=== PATIENT | female | born 1980 | race Caucasian/White ===

== ENCOUNTER 2019-06-08 11:00 | Emergency (ER) | payer BC ==
[~2019-06-08] VITALS: Ht 165.1 cm; Wt 93.2 kg
[~2019-06-08 11:00] MED LIST: DCS100C PO; HYDR-3730 PO; IBP800T PO; IBUP-1780 PO; ONDA4TAB11 PO; OXYC1TAB12 PO; TRAM50TA2 PO
--- NOTE | 2019-06-08 12:32 | NUR ---
TO ROOM NO CHANGE FROM TRIAGE
[2019-06-08] MEDS ORDERED: KETOROLAC 30 MG/ML VIAL IVP ONE (12:45)
[2019-06-08 13:02] LABS: BASOPHILS % (AUTO) 0 % (0-10); EOSINOPHILS # (AUTO) 0.1 10^3/uL (0.0-0.3); EOSINOPHILS % (AUTO) 1 % (0-10); HEMATOCRIT 38 % (35-52); HEMOGLOBIN 12.2 G/DL (11.5-16.0); LYMPHOCYTES # (AUTO) 1.1 X 10^3 (1.0-4.0); LYMPHOCYTES % (AUTO) 14 % (12-44); MEAN CORPUSCULAR HEMOGLOBIN 27 PG (25-34); MEAN CORPUSCULAR HGB CONC 33 G/DL (32-36); MEAN CORPUSCULAR VOLUME 83 FL (80-99); MEAN PLATELET VOLUME 9.7 FL (7.4-10.4); MONOCYTES # (AUTO) 0.4 X 10^3 (0.0-1.0); MONOCYTES % (AUTO) 5 % (0-12); NEUTROPHILS % (AUTO) 79 % (42-75); PLATELET COUNT 291 10^3/uL (130-400); RED CELL DISTRIBUTION WIDTH 13.9 % (10.0-14.5); WHITE BLOOD COUNT 7.6 10^3/uL (4.3-11.0)
--- NOTE | 2019-06-08 13:03 | ED Abdominal Pain ---
General Chief Complaint: Abdominal/GI Problems Stated Complaint: ABD PAIN Nursing Triage Note: PT AMB TO TRIAGE WITH COMPLAINT OF ABD PAIN THAT STARTED LAST NIGHT. STATES PAIN IS IN RLQ AND RADIATES TO BACK. Sepsis Screen: No Definite Risk Source of Information: Patient Exam Limitations: No Limitations History of Present Illness Date Seen by Provider: Jun 08, 2019 Time Seen by Provider: 13:02 Initial Comments To ER with reports of right lower quadrant abdominal pain that radiates to the back and down the right leg. She's had diarrhea for a few days, the pain has progressively worsened since last night. She was here with similar presentation in 2016 and does not have no evidence of appendicitis. Primary care is Deana Carrion APRN.. She denies fevers or vomiting. Timing/Duration: 1-2 Days Severity/Quality: Moderate Radiation: No Radiation Activities at Onset: None Associated Symptoms: No Fever/Chills, No Nausea/Vomiting Allergies and Home Medications Allergies Coded Allergies: NKANo Known Allergies (Verified Allergy, Unknown, 02/26/06) Patient Home Medication List Home Medication List Reviewed: Yes Review of Systems Review of Systems Constitutional: see HPI EENTM: No Symptoms Reported Respiratory: No Symptoms Reported Cardiovascular: No Symptoms Reported Gastrointestinal: See HPI, Abdominal Pain Genitourinary: No Symptoms Reported Musculoskeletal: no symptoms reported Skin: no symptoms reported Psychiatric/Neurological: No Symptoms Reported Endocrine: No Symptoms Reported Past Ctvynhj-Shlkht-Probmi Hx Patient Social History Recent Foreign Travel: No Contact w/Someone Who Travel: No Recent Infectious Disease Expo: No Recent Hopitalizations: No Physical Abuse: No Sexual Abuse: No Mistreated: No Fear: No Immunizations Up To Date Tetanus Booster (TDap): Unknown PED Vaccines UTD: Yes Past Medical History Surgeries: Yes (C/S X4) Section, Gallbladder, Tubal Ligation Respiratory: No Cardiac: Yes (MURMUR A CHILD, GESTATIONAL HYPERTENSION) Hypertension Neurological: No Reproductive Disorders: No Female Reproductive Disorders: Ovarian Cyst Sexually Transmitted Disease: No HIV/AIDS: No Gastrointestinal: Yes Gall Bladder Disease Musculoskeletal: No Endocrine: No Loss of Vision: Denies Hearing Impairment: Denies Cancer: No Psychosocial: No Integumentary: No Blood Disorders: No Adverse Reaction/Blood Tranf: No Family Medical History Alzheimer's disease MATERNAL GRANDMOTHER Arthritis 19 MOTHER Diabetes mellitus 19 MOTHER Hypercholesterolemia 19 FATHER 19 MOTHER Hypertension 19 FATHER Myocardial infarction 19 FATHER Severe allergy 19 MOTHER Thyroid disease 19 MOTHER No Family History of: AIDS Abdominal aortic aneurysm Donato's disease Alcoholism Aphasia Asthma Cancer of mouth Cardiovascular disease Cataracts Colon cancer Completed stroke Congenital disease Congenital heart disease Coronary thrombosis Cystic fibrosis Deafness or hearing loss Dementia Drug abuse Dysphasia Fibrocystic disease of breast Gastroenteritis Glaucoma Headache disorder Infertility Kidney disease Neoplasm Not obtainable due to adoption Osteoporosis Parkinson's disease Prostate cancer Psychosocial problem Respiratory disorder Seizure disorder Tuberculosis Visual disorder No Pertinent Family Hx Physical Exam Vital Signs Vital Signs - First Documented 06/08/19 11:04 Temp 36.7 Pulse 97 Resp 18 B/P (MAP) 132/94 (107) Pulse Ox 98 O2 Delivery Room Air Capillary Refill : Less Than 3 Seconds Height/Weight/BMI Height: 5'6" Weight: 220lbs. oz. 99.642234zq; 34.00 BMI Method:Stated General Appearance: WD/WN, no apparent distress HEENT: PERRL/EOMI, normal ENT inspection Respiratory: no respiratory distress, no accessory muscle use Gastrointestinal: normal bowel sounds, soft, rebound, tenderness, other (obturator sign positive) Extremities: normal range of motion, non-tender Neurologic/Psychiatric: alert, normal mood/affect, oriented x 3 Skin: normal color, warm/dry Progress/Results/Core Measures Results/Orders Lab Results Laboratory Tests Test 06/08/19 12:50 06/08/19 14:49 Range/Units White Blood Count 7.6 4.3-11.0 10^3/uL Red Blood Count 4.52 4.35-5.85 10^6/uL Hemoglobin 12.2 11.5-16.0 G/DL Hematocrit 38 35-52 % Mean Corpuscular Volume 83 80-99 FL Mean Corpuscular Hemoglobin 27 25-34 PG Mean Corpuscular Hemoglobin Concent 33 32-36 G/DL Red Cell Distribution Width 13.9 10.0-14.5 % Platelet Count 291 130-400 10^3/uL Mean Platelet Volume 9.7 7.4-10.4 FL Neutrophils (%) (Auto) 79 H 42-75 % Lymphocytes (%) (Auto) 14 12-44 % Monocytes (%) (Auto) 5 0-12 % Eosinophils (%) (Auto) 1 0-10 % Basophils (%) (Auto) 0 0-10 % Neutrophils # (Auto) 6.0 1.8-7.8 X 10^3 Lymphocytes # (Auto) 1.1 1.0-4.0 X 10^3 Monocytes # (Auto) 0.4 0.0-1.0 X 10^3 Eosinophils # (Auto) 0.1 0.0-0.3 10^3/uL Basophils # (Auto) 0.0 0.0-0.1 10^3/uL Sodium Level 139 135-145 MMOL/L Potassium Level 3.9 3.6-5.0 MMOL/L Chloride Level 105 98-107 MMOL/L Carbon Dioxide Level 26 21-32 MMOL/L Anion Gap 8 5-14 MMOL/L Blood Urea Nitrogen 8 7-18 MG/DL Creatinine 0.92 0.60-1.30 MG/DL Estimat Glomerular Filtration Rate > 60 BUN/Creatinine Ratio 9 Glucose Level 89 70-105 MG/DL Calcium Level 9.2 8.5-10.1 MG/DL Corrected Calcium 9.1 8.5-10.1 MG/DL Total Bilirubin 0.5 0.1-1.0 MG/DL Aspartate Amino Transf (AST/SGOT) 24 5-34 U/L Alanine Aminotransferase (ALT/SGPT) 27 0-55 U/L Alkaline Phosphatase 74 40-136 U/L Total Protein 7.8 6.4-8.2 GM/DL Albumin 4.1 3.2-4.5 GM/DL Serum Test, Qualitative NEGATIVE NEGATIVE Urine Color YELLOW Urine Clarity CLEAR Urine pH 6.5 5-9 Urine Specific [place] 1.010 L 1.016-1.022 Urine Protein 1+ H NEGATIVE Urine Glucose (UA) NEGATIVE NEGATIVE Urine Ketones NEGATIVE NEGATIVE Urine Nitrite NEGATIVE NEGATIVE Urine Bilirubin NEGATIVE NEGATIVE Urine Urobilinogen NORMAL NORMAL MG/DL Urine Leukocyte Esterase 2+ H NEGATIVE Urine RBC (Auto) NEGATIVE NEGATIVE Urine RBC NONE /HPF Urine WBC 25-50 H /HPF Urine Squamous Epithelial Cells 5-10 /HPF Urine Crystals NONE /LPF Urine Bacteria TRACE /HPF Urine Casts NONE /LPF Urine Mucus NEGATIVE /LPF Urine Culture Indicated YES My Orders Orders - CAREY GUDINO [employer] ADVIS[employer] Cbc With Automated Diff (06/08/19 12:42) Comprehensive Metabolic Panel (06/08/19 12:42) Hcg,Qualitative Serum (06/08/19 12:42) Ct Abd/Pelv W (Appendicitis) (06/08/19 12:42) Ed Iv/Invasive Line Start (06/08/19 12:42) Ua Culture If Indicated (06/08/19 12:42) Ketorolac Injection (Toradol Injection) (06/08/19 12:45) Iohexol Injection (Omnipaque 350 Mg/Ml 1 (06/08/19 13:45) Received Contrast (Hold Metformin- Contr (06/08/19 13:45) Sodium Chloride Flush (Catheter Flush Sy (06/08/19 13:45) Ns (Ivpb) (Sodium Chloride 0.9% Ivpb Bag (06/08/19 13:45) Urine Culture (06/08/19 14:49) Medications Given in ED Current Medications Medications Dose Ordered Sig/Angel Route Start Time Stop Time Status Last Admin Dose Admin Iohexol 100 ml ONCE ONCE IV 06/08/19 13:45 06/08/19 13:46 DC 06/08/19 14:16 100 ML Ketorolac Tromethamine 15 mg ONCE ONCE IVP 06/08/19 12:45 06/08/19 12:46 DC 06/08/19 12:59 15 MG Sodium Chloride 10 ml NEEDED PRN IV 06/08/19 13:45 06/08/19 14:16 10 ML Sodium Chloride 100 ml ONCE ONCE IV 06/08/19 13:45 06/08/19 13:46 DC 06/08/19 14:16 80 ML Vital Signs/I&O 06/08/19 11:04 Temp 36.7 Pulse 97 Resp 18 B/P (MAP) 132/94 (107) Pulse Ox 98 O2 Delivery Room Air Blood Pressure Mean: 107 Diagnostic Imaging Diagonstic Imaging: CT Comments NAME: MURIEL TRISTAN [facility] REC#: [id number] PT STATUS: REG ER : 1980 PHYSICIAN: CAREY GUDINO APRN ADMIT DATE: 06/08/19/ER Draft Date of Exam:06/08/19 CT ABD/PELV W (APPENDICITIS) PROCEDURE: CT abdomen and pelvis with contrast, rule out appendicitis. TECHNIQUE: Multiple contiguous axial images were obtained through the abdomen and pelvis after the administration of intravenous contrast. INDICATION: Right lower quadrant pain and diarrhea. COMPARISON: Correlation is made with prior CT from 08/21/2015. FINDINGS: The lung bases are clear. There are multiple low-density lesions that have developed throughout the liver. This was not present on prior exam. Largest is in the left lobe measuring 16 mm. These cannot be characterized as simple cysts. There are multiple low-density lesions within the spleen as well, largest is inferiorly located measuring 16 mm. Gallbladder is surgically absent. No biliary ductal dilatation is seen. The pancreas is unremarkable. No adrenal mass is detected. No renal masses or hydronephrosis is seen. Aorta is non-aneurysmal. No central retroperitoneal or mesenteric lymphadenopathy is seen. The small and large bowel loops are normal in caliber. There is no obstruction. Appendix is visualized in the right lower quadrant and appears unremarkable. The uterus and bladder are unremarkable. There is no free fluid or fluid collection. No pelvic lymphadenopathy is seen. Bony structures are nonacute. IMPRESSION: 1. No CT evidence of acute appendicitis. 2. Interval development of multiple rounded low-density lesions throughout the liver and spleen. This is concerning for metastatic disease. Primary is indeterminate. CT of the chest would be recommended for further evaluation. No other significant abnormality in the abdomen or pelvis is seen. Dictated on workstation # [id number] Dict: 06/08/19 1423 Trans: 06/08/19 1436 [id number] Interpreted by: CASSY DIA MD Electronically signed by: Departure Communication (Admissions) I spoke with the patient's primary care provider Deana Carrion, she'll see the patient tomorrow morning at 8:30. I spoke with radiologist Dr. Dia, recommends the next step would be a CT scan of the chest and then additional PET CT scan. Impression Primary Impression: Right lower quadrant pain Additional Impressions: hepatic incidentaloma hepatosplenic lesions Urinary tract infection Qualified Codes: N30.00 - Acute cystitis without hematuria Disposition: HOME, SELF-CARE Condition: Stable Departure-Patient Inst. Decision time for Depature: 14:37 Referrals: CAMERON CARRION DNP (PCP) Primary Care Physician Patient Instructions: NO INSTRUCTIONS GIVEN Add. Discharge Instructions: 1. Return to ER for any concerns 2. Follow up with Alize Carrion tomorrow at 0830. Scripts Cefuroxime Axetil (Cefuroxime) 250 Mg Tablet 250 MG PO BID, #10 TAB Prov: CAREY GUDINO APRN 06/08/19 Copy Copies To 1: REHAN CARRION PETER J APRN Jun 08, 2019 13:03
[2019-06-08 13:23] LABS: ALANINE AMINOTRANSFERASE 27 U/L (0-55); ALBUMIN 4.1 GM/DL (3.2-4.5); ALKALINE PHOSPHATASE 74 U/L (40-136); BILIRUBIN,TOTAL 0.5 MG/DL (0.1-1.0); BUN/CREATININE RATIO 9; CALCIUM 9.2 MG/DL (8.5-10.1); CARBON DIOXIDE 26 MMOL/L (21-32); CHLORIDE 105 MMOL/L (98-107); CREATININE SERUM 0.92 MG/DL (0.60-1.30); GFR ESTIMATED > 60; GLUCOSE 89 MG/DL (70-105); POTASSIUM 3.9 MMOL/L (3.6-5.0); SODIUM 139 MMOL/L (135-145); TOTAL PROTEIN 7.8 GM/DL (6.4-8.2)
[2019-06-08] MEDS ORDERED: CATHETER FLUSH 10 ML SYR IV PRN (13:45)
[2019-06-08] MEDS ORDERED: HOLD METFORMIN - RECEIVED CONTRAST 20 ML VIAL IV SCH (13:45)
[2019-06-08] MEDS ORDERED: NS 100 ML (IVPB) BAG IV ONE (13:45)
[2019-06-08] MEDS ORDERED: IOHEXOL 350 MG/ML 100 ML (OMNIPAQUE 350) VIAL IV ONE (13:45)
--- NOTE | 2019-06-08 14:37 | Diagnostic Imaging Report ---
PROCEDURE: CT abdomen and pelvis with contrast, rule out appendicitis. TECHNIQUE: Multiple contiguous axial images were obtained through the abdomen and pelvis after the administration of intravenous contrast. INDICATION: Right lower quadrant pain and diarrhea. COMPARISON: Correlation is made with prior CT from 08/21/2015. FINDINGS: The lung bases are clear. There are multiple low-density lesions that have developed throughout the liver. This was not present on prior exam. Largest is in the left lobe measuring 16 mm. These cannot be characterized as simple cysts. There are multiple low-density lesions within the spleen as well, largest is inferiorly located measuring 16 mm. Gallbladder is surgically absent. No biliary ductal dilatation is seen. The pancreas is unremarkable. No adrenal mass is detected. No renal masses or hydronephrosis is seen. Aorta is non-aneurysmal. No central retroperitoneal or mesenteric lymphadenopathy is seen. The small and large bowel loops are normal in caliber. There is no obstruction. Appendix is visualized in the right lower quadrant and appears unremarkable. The uterus and bladder are unremarkable. There is no free fluid or fluid collection. No pelvic lymphadenopathy is seen. Bony structures are nonacute. IMPRESSION: 1. No CT evidence of acute appendicitis. 2. Interval development of multiple rounded low-density lesions throughout the liver and spleen. This is concerning for metastatic disease. Primary is indeterminate. CT of the chest would be recommended for further evaluation. No other significant abnormality in the abdomen or pelvis is seen. Dictated by: Dictated on workstation # [id number]
[2019-06-08 14:56] LABS: BILIRUBIN,URINE NEGATIVE (NEGATIVE); CLARITY,URINE CLEAR; COLOR,URINE YELLOW; GLUCOSE, URINE (UA) NEGATIVE (NEGATIVE); KETONES,URINE NEGATIVE (NEGATIVE); LEUKOCYTE ESTERASE ,URINE 2+ (NEGATIVE); NITRITE,URINE NEGATIVE (NEGATIVE); PH,URINE 6.5 (5-9); PROTEIN,URINE 1+ (NEGATIVE)
[2019-06-08 15:09] LABS: BACTERIA,URINE TRACE /HPF; WBC,URINE 25-50 /HPF
[2019-06-08] MEDS ORDERED: CEFU250T80 PO (15:15)
[2019-06-08 15:23] VITALS: BP 131/90
[2019-06-09] MEDS ORDERED: ACHD5005 PO (12:46)
== END 2019-06-08 15:23 | disposition home or self-care (01) ==
LOC: EDUNIT# 11:00 → ER 11:01
DX: D13.4 Benign neoplasm of liver (principal); K76.89 Other specified diseases of liver; N39.0 Urinary tract infection, site not specified; I10 Essential (primary) hypertension; Z98.51 Tubal ligation status; Z82.49 Family history of ischemic heart disease and other diseases of the circulatory system
CPT/HCPCS: 36415; 74177; 80053; 81000; 84703; 85025; 87088; 96374

== ENCOUNTER → 2019-06-21 | Outpatient (CLI) | payer BC ==
[~2019-06-21] MED LIST changes: +ACHD5005 PO; +CATHETER FLUSH 10 ML SYR IV PRN; +CEFU250T80 PO; +HOLD METFORMIN - RECEIVED CONTRAST 20 ML VIAL IV SCH; +IOHEXOL 350 MG/ML 100 ML (OMNIPAQUE 350) VIAL IV ONE; +NS 100 ML (IVPB) BAG IV ONE
--- NOTE | 2019-06-21 16:32 | Diagnostic Imaging Report ---
PROCEDURE: CT chest with contrast only. TECHNIQUE: Multiple contiguous axial images were obtained through the chest after administration of intravenous contrast. Auto Exposure Controls were utilized during the CT exam to meet ALARA standards for radiation dose reduction. DATE: June 21, 2019. COMPARISON: CT abdomen and pelvis of June 08, 2019. INDICATION: 38-year-old female, concern for metastatic disease to the liver and spleen based on prior CT imaging. No additional history provided. FINDINGS: There is very mild tree-in-bud nodularity in the left upper lobe on axial image 41 and adjacent sequential images. The tree-in-bud nodular pattern is most typical for a process spreading via endobronchial means which is most typically an infectious bronchiolitis or aspiration. This is a very uncommon nodular pattern for metastatic disease. There is no otherwise noted pulmonary nodule. There is no lung mass. There is no additional focal airspace consolidation. The central airways are patent. There is no pneumothorax. There is no pleural effusion. There is no identified central pulmonary embolus. There is limited evaluation for segmental and subsegmental pulmonary emboli given timing of the contrast bolus. The heart is not enlarged. There is no pericardial effusion. There is no identified abnormally enlarged mediastinal, hilar, or axillary lymph node. CT is not sensitive for detection of breast cancer. There are multiple subtle low-attenuation lesions in the right and left lobes of the liver as well as multiple low-attenuation lesions in the spleen. The spleen is not enlarged. There is contrast present in the urinary collecting systems likely relating to timing of the contrast bolus. There is no identified concerning focal bone lesion. IMPRESSION: 1. Mild tree in bud nodularity in the left upper lobe of uncertain exact acuity. This most likely relates to a process spreading via endobronchial means which is most typically an infectious bronchiolitis or aspiration. This is a highly uncommon nodular pattern for metastatic disease. 2. No evidence of metastatic disease to the lungs or evidence for primary lung malignancy. 3. CT chest is not sensitive for evaluation of breast cancer. 4. Redemonstrated multiple subtle low-attenuation lesions in the right and left lobes of the liver as well as multiple low-attenuation lesions in the spleen without splenomegaly. The differential diagnostic considerations would include multifocal metastatic disease to liver or potentially infectious etiology depending on clinical scenario. Workup for a definitive diagnosis is needed. Dictated by: Dictated on workstation # [id number]
== END ==
LOC: RAD 12:21
PROVIDERS: ATTEND Surgery
DX: D37.6 Neoplasm of uncertain behavior of liver, gallbladder and bile ducts (principal); D73.89 Other diseases of spleen; K76.9 Liver disease, unspecified
CPT/HCPCS: 71260

== ENCOUNTER 2019-06-28 07:26 | Day surgery (SDC) | payer BC ==
[~2019-06-28] VITALS: Ht 165.1 cm; Wt 99.5 kg
[2019-06-28] VITALS (16 sets, daily range): BP systolic 92–127; BP diastolic 51–82
[~2019-06-28 07:26] MED LIST changes: -CATHETER FLUSH 10 ML SYR IV PRN; -HOLD METFORMIN - RECEIVED CONTRAST 20 ML VIAL IV SCH; -IOHEXOL 350 MG/ML 100 ML (OMNIPAQUE 350) VIAL IV ONE; -NS 100 ML (IVPB) BAG IV ONE
[2019-06-28] MEDS ORDERED: LIDOCAINE PF 1% 2 ML AMP IJ ONE (07:27)
[2019-06-28] MEDS ORDERED: LIDOCAINE JELLY 2% 6 ML SYRINGE MM ONE (07:27)
[2019-06-28] MEDS ORDERED: LIDOCAINE PF 2% 5 ML (XYLOCAINE) VIAL INJ ONE (07:27)
[2019-06-28] MEDS ORDERED: NS IV 500 ML 500 ML ONE (07:40)
[2019-06-28] MEDS ORDERED: NS IV 500 ML 500 ML IV PRN (07:55)
[2019-06-28] MEDS ORDERED: fentaNYL INJECTION 100 MCG/2 ML AMP IVP ONE (08:00)
[2019-06-28] MEDS ORDERED: fentaNYL INJECTION 100 MCG/2 ML AMP ONE (08:50)
[2019-06-28] MEDS ORDERED: MIDAZOLAM 5 MG/5 ML (VERSED) VIAL ONE ×2 (08:50)
[2019-06-28] MEDS: MIDAZOLAM 5 MG/5 ML (VERSED) VIAL IV PRN ×4 (09:19→09:27)
[2019-06-28 10:24] LABS: BASOPHILS % (AUTO) 0 % (0-10); EOSINOPHILS # (AUTO) 0.2 10^3/uL (0.0-0.3); EOSINOPHILS % (AUTO) 2 % (0-10); HEMATOCRIT 35 % (35-52); HEMOGLOBIN 11.3 G/DL (11.5-16.0); LYMPHOCYTES % (AUTO) 29 % (12-44); MEAN CORPUSCULAR HEMOGLOBIN 27 PG (25-34); MEAN CORPUSCULAR HGB CONC 32 G/DL (32-36); MEAN CORPUSCULAR VOLUME 84 FL (80-99); MEAN PLATELET VOLUME 10.2 FL (7.4-10.4); MONOCYTES # (AUTO) 0.5 X 10^3 (0.0-1.0); MONOCYTES % (AUTO) 7 % (0-12); NEUTROPHILS # (AUTO) 4.3 X 10^3 (1.8-7.8); NEUTROPHILS % (AUTO) 61 % (42-75); PLATELET COUNT 295 10^3/uL (130-400)
--- NOTE | 2019-06-28 10:53 | Diagnostic Imaging Report ---
INDICATION: STATUS POST BRONCHOSCOPY COMPARISON: None. FINDINGS: Single frontal view of the chest demonstrates normal heart size and pulmonary vascularity. The lungs are well aerated and clear. No large pleural effusion or pneumothorax is seen. The visualized osseous structures show no acute abnormalities. IMPRESSION: 1. No acute cardiopulmonary process. Dictated by: Dictated on workstation # [id number]
--- NOTE | 2019-06-28 10:57 | Diagnostic Imaging Report ---
INDICATION: Fluoroscopy for bronchoscopy. FINDINGS: Fluoroscopy was provided for Dr. Seals during bronchoscopy. 28 seconds of fluoroscopic time was utilized. IMPRESSION: Fluoroscopy for bronchoscopy. Dictated by: Dictated on workstation # [id number]
--- NOTE | 2019-06-28 11:36 | Pulmonary Procedures ---
Pulmonary Procedures Date of Procedure Date of Service: Jun 28, 2019 Bronch Bronchoscopy with fluoroscopy MARYLIN bronchoalveolar lavage (BAL), bilateral bronchial washes and, MARYLIN transbronchial brushes. Preop DX MARYLIN pneumonia persistent Postop DX: same Complications: none After informed consent obtained and formal time out pt was sedated using Fentanyl and Versed. Bronchoscope was advanced through the nare and vocal cords. 1% lidocaine was used to anesthetize vocal cords, epiglottis, angie, and left/right main stem bronchus. An anatomical tour was undertaken down to the segmental bronchi bilaterally. No endobronchial lesions noted. From the MARYLIN a bronchoalveolar lavage (BAL), bilateral bronchial washes and, brushes from MARYLIN were obtained. Pt tolerated procedure well. No complications noted. Stat CXR is pending. NAINA ZEPEDA DO Jun 28, 2019 11:36 POS
--- NOTE | 2019-06-28 11:37 | Progress Note-Pre Operative ---
Pre-Operative Progress Note H&P Reviewed The H&P was reviewed, patient examined and no changes noted. Date Seen by Provider: Jun 28, 2019 Time Seen by Provider: 07:30 Date H&P Reviewed: Jun 28, 2019 Time H&P Reviewed: 07:00 Pre-Operative Diagnosis: MARYLIN NAINA LAMBERT DO Jun 28, 2019 11:37 POS
--- NOTE | 2019-06-28 11:38 | Pre-Op Note & Conscious Sedat ---
Pre-Operative Progress Note H&P Reviewed The H&P was reviewed, patient examined and no changes noted. Date H&P Reviewed: Jun 28, 2019 Time H&P Reviewed: 07:00 Conscious Sedation Pre-Proced Time 07:00 ASA Score 3 For ASA 3 and 4: Consider anesthesia and medical clearance. Also, for patients with a history of failed moderate sedation consider anesthesia. Airway Lungs Heart ASA score ASA 1: a normal healthy patient ASA 2: a patient with a mild systemic disease (mid diabetes, controlled hypertension, obesity ASA 3: a patient with a severe systemic disease that limits activity (angina, COPD, prior Myocardial infarction) ASA 4: a patient with an incapacitating disease that is a constant threat to life (CHF, renal failure) ASA 5: a moribund patient not expected to survive 24 hrs. (ruptured aneurysm) ASA 6: a declared brain- patient whose organs are being harvested. For emergent operations, add the letter E after the classification Mallampati Classification Grade 2 Sedation Plan Analgesia, Amnesia, Plan communicated to team members, Discussed options with patient/fam, Discussed risks with patient/fam The patient is an appropriate candidate to undergo the planned procedure, sedation, and anesthesia. The patient immediately re-assessed prior to indication. NAINA ZEPEDA DO Jun 28, 2019 11:38 POS
== END 2019-06-28 10:45 | disposition home or self-care (01) ==
LOC: ENDO 07:26
PROVIDERS: ATTEND Internal Medicine Critical Care Medicine
DX: J18.1 Lobar pneumonia, unspecified organism (principal); G47.33 Obstructive sleep apnea (adult) (pediatric); I25.10 Atherosclerotic heart disease of native coronary artery without angina pectoris; E66.9 Obesity, unspecified; Z68.36 Body mass index [BMI] 36.0-36.9, adult; Z90.49 Acquired absence of other specified parts of digestive tract; Z83.3 Family history of diabetes mellitus; Z82.49 Family history of ischemic heart disease and other diseases of the circulatory system
CPT/HCPCS: 36415; 71045; 82164; 84703; 85025; 87015; 87070; 87101; 87116; 87205; 87206; 94640

== ENCOUNTER → 2019-08-02 | Outpatient (CLI) | payer BC ==
[~2019-08-02] MED LIST changes: +RT-ALBUTEROL SULF 2.5 MG/3 ML PRE-MIX VIAL INH ONE
[2019-08-02 11:02] LABS: BASOPHILS % (AUTO) 1 % (0-10); EOSINOPHILS # (AUTO) 0.2 10^3/uL (0.0-0.3); EOSINOPHILS % (AUTO) 2 % (0-10); HEMATOCRIT 39 % (35-52); HEMOGLOBIN 12.7 G/DL (11.5-16.0); LYMPHOCYTES # (AUTO) 1.6 X 10^3 (1.0-4.0); LYMPHOCYTES % (AUTO) 25 % (12-44); MEAN CORPUSCULAR HEMOGLOBIN 28 PG (25-34); MEAN CORPUSCULAR HGB CONC 33 G/DL (32-36); MEAN CORPUSCULAR VOLUME 85 FL (80-99); MONOCYTES # (AUTO) 0.5 X 10^3 (0.0-1.0); MONOCYTES % (AUTO) 9 % (0-12); NEUTROPHILS # (AUTO) 3.9 X 10^3 (1.8-7.8); NEUTROPHILS % (AUTO) 64 % (42-75); PLATELET COUNT 282 10^3/uL (130-400); RED CELL DISTRIBUTION WIDTH 14.4 % (10.0-14.5); WHITE BLOOD COUNT 6.2 10^3/uL (4.3-11.0)
== END ==
LOC: RT 10:44
PROVIDERS: ATTEND Nurse Practitioner Family
DX: R06.89 Other abnormalities of breathing (principal); R06.00 Dyspnea, unspecified; R91.8 Other nonspecific abnormal finding of lung field
CPT/HCPCS: 36415; 82164; 85025; 94060; 94640; 94726; 94729

== ENCOUNTER → 2019-10-09 | Outpatient (CLI) | payer BC, MEDICAID ==
[~2019-10-09] MED LIST changes: +CATHETER FLUSH 10 ML SYR IV PRN; +HOLD METFORMIN - RECEIVED CONTRAST 20 ML VIAL IV SCH; +IOHEXOL 350 MG/ML 100 ML (OMNIPAQUE 350) VIAL IV ONE; +NS 100 ML (IVPB) BAG IV ONE; -RT-ALBUTEROL SULF 2.5 MG/3 ML PRE-MIX VIAL INH ONE; -TRAM50TA2 PO; +TRM50T PO
[2019-10-09 09:24] LABS: BUN/CREATININE RATIO 13; CREATININE SERUM 0.85 MG/DL (0.60-1.30); GFR ESTIMATED > 60
--- NOTE | 2019-10-09 10:37 | Diagnostic Imaging Report ---
PROCEDURE: CT chest with contrast only. TECHNIQUE: Multiple contiguous axial images were obtained through the chest after administration of intravenous contrast. Auto Exposure Controls were utilized during the CT exam to meet ALARA standards for radiation dose reduction. DATE: October 09, 2019. COMPARISON: Chest radiograph June 28, 2019. CT chest June 21, 2019. INDICATION: 38-year-old female, cough and dyspnea. FINDINGS: There is no identified pulmonary nodule. There is no lung mass. There is no focal airspace consolidation. There is no pneumothorax. There is no pleural effusion. The central airways are patent. There is no identified central or segmental pulmonary embolus. The main pulmonary artery diameter is within normal limits. The heart is not enlarged. There is no pericardial effusion. There is no identified abnormally enlarged mediastinal, hilar, or axillary lymph node which meets CT size criteria for adenopathy. There is an ill-defined low-attenuation lesion in the right lobe of the liver on axial image 113 measuring 11 mm in size and subjacent similar appearing lesion on axial image 112 measuring 9 mm in size as well as an additional subtle low-attenuation lesion in the right lobe of the liver on the same image measuring 8 mm in size. There is a low-attenuation lesion in the right lobe of the liver posteriorly on axial image 121 measuring 1.4 cm in size. There is a 7 mm low-attenuation lesion in the left lobe of the liver on axial image 132. These lesions are not diagnostic for benign cysts. There is an additional low-attenuation lesion in the left lobe of the liver measuring 1.2 cm in size on axial image 128. The portal veins are grossly patent. There is no biliary ductal dilation. The main pancreatic duct is not abnormally dilated. The pancreatic parenchyma is unremarkable. There are numerous low-attenuation lesions in the spleen. The spleen is not enlarged. The adrenal glands are unremarkable. Unremarkable appearance of the renal parenchyma. There is no hydronephrosis. There is no identified bone lesion to suggest bone metastasis. There is no acute bony abnormality. IMPRESSION: CT CHEST. 1. Multiple low-attenuation lesions in the liver and spleen which are nondiagnostic for benign cysts. These lesions are present dating back to at least June 08, 2019. One example lesion on current axial image 13 measures 11 mm in size compared to 10 mm in size on June 08, 2019. The additional liver lesions also appear fairly similar in size. An example splenic lesion on current axial image 154 measures unchanged in size. Some of the splenic lesions are not particularly well seen on prior exam and could be new although this could be related to differences in timing of the contrast bolus. These lesions are indeterminant. Differential diagnostic considerations include metastatic disease. Sequela of infectious or granulomatous process is also considered. Workup for definitive diagnosis is needed. 2. No identified acute cardiopulmonary abnormality. 3. Resolution of previously noted tree-in-bud nodularity in the left upper lobe likely relating to prior infectious bronchiolitis or aspiration. 4. No evidence of primary lung malignancy or metastatic disease to the chest. 5. CT chest imaging does not well evaluate for breast cancer. Dictated by: Dictated on workstation # [id number]
[2019-10-10 06:12] LABS: ALTERNARIA MOLD RAST <0.35 kU/L (<0.35); RAGWEED RAST <0.35 kU/L (<0.35)
== END ==
LOC: RAD 08:53
PROVIDERS: ATTEND Nurse Practitioner Family
DX: J45.909 Unspecified asthma, uncomplicated (principal); K76.9 Liver disease, unspecified; D73.89 Other diseases of spleen
CPT/HCPCS: 36415; 71260; 82565; 82785; 84520; 86003

== ENCOUNTER → 2020-06-18 | Outpatient (CLI) | payer BC, MEDICAID ==
[~2020-06-18] MED LIST changes: -CATHETER FLUSH 10 ML SYR IV PRN; -HOLD METFORMIN - RECEIVED CONTRAST 20 ML VIAL IV SCH; -IOHEXOL 350 MG/ML 100 ML (OMNIPAQUE 350) VIAL IV ONE; -NS 100 ML (IVPB) BAG IV ONE
--- NOTE | 2020-06-18 10:39 | Diagnostic Imaging Report ---
CLINICAL INDICATION: Patient with spinal enthesopathy and cervical radiculopathy. EXAM: X-ray of the cervical spine, 5 views. COMPARISON: None. FINDINGS: There is no acute cervical spine fracture or dislocation. There is straightening of the cervical spine posture. Otherwise, the cervical spine shows no other significant abnormality. There is no significant bony neuroforaminal narrowing. There is no prevertebral soft tissue swelling. IMPRESSION: There is straightening of the cervical spine posture which is nonspecific and may be seen with muscle spasm or patient positioning; otherwise, unremarkable x-ray of the cervical spine. Dictated by: Dictated on workstation # [id number]
== END ==
LOC: RAD 09:38
PROVIDERS: ATTEND Nurse Practitioner Family
DX: M46.02 Spinal enthesopathy, cervical region (principal); M54.12 Radiculopathy, cervical region
CPT/HCPCS: 72050

== ENCOUNTER 2020-07-01 10:37 | Outpatient (RCR) | payer MEDICAID | END 2020-07-18 09:00 | disposition home or self-care (01) | PROVIDERS: ATTEND Nurse Practitioner Family | DX: M54.6 Pain in thoracic spine (principal); M62.838 Other muscle spasm ==

== ENCOUNTER 2021-04-28 08:09 | Emergency (ER) | payer BC, MEDICAID ==
[~2021-04-28] VITALS: Ht 162.5 cm; Wt 106.5 kg
[2021-04-28 08:25] VITALS: BP_SYST 123; BP_SYST 124; BP_SYST 138; BP_DIAS 74; BP_DIAS 87; BP_DIAS 98
[2021-04-28] MEDS ORDERED: ACETAMINOPHEN 500 MG TAB (TYLENOL) PO ONE (08:30)
[2021-04-28] MEDS ORDERED: PROMETHAZINE INJ 25 MG/ML (PHENERGAN) AMP IVP ONE (08:30)
[2021-04-28] MEDS ORDERED: LACTATED RINGERS 1,000 ML IV ONE ×2 (08:30)
[2021-04-28] MEDS ORDERED: KETOROLAC 30 MG/ML VIAL IVP ONE (08:30)
--- NOTE | 2021-04-28 08:31 | ED Syncope ---
General Stated Complaint: PASSED OUT,HIT HEAD,MIGRAINE,HOT/COLD Source of Information: Patient Exam Limitations: No Limitations History of Present Illness Date Seen by Provider: Apr 28, 2021 Time Seen by Provider: 08:10 Initial Comments Patient to the ER by private conveyance from home with chief complaint of having passed out and hit her head while getting out of the shower. She says she been having a serious migraine since Wednesday which is one of the worst she has had but she has been years since has had one this bad. She is been using Excedrin and ibuprofen with no success in treating her migraine. She is having some nausea at times because the pain so bad. No cough or fever but she has had chills hot flashes and cold flashes. She says she was in the shower trying to warm up and when she stepped out this when she passed out. She says she has not eaten in the past 2 days and has had very little fluid intake. She feels very dehydrated. She has had her Covid vaccination. No history of heart disease or syncope in the past. Allergies and Home Medications Allergies Coded Allergies: Jose Known Allergies (Verified Allergy, Unknown, 02/26/06) Patient Home Medication List Home Medication List Reviewed: Yes Cefuroxime Axetil (Cefuroxime) 250 Mg Tablet, 250 MG PO BID Prescribed by: CAREY GUDINO on 06/08/19 1515 Cyclobenzaprine HCl (Cyclobenzaprine HCl) 10 Mg Tablet, 10 MG PO Q8H PRN for SPASMS Prescribed by: YOGESH AVITIA on 04/28/21 1420 Hydrocodone Bit/Acetaminophen (Lortab 5 Mg Tablet) 1 Tab Tab, 1 TAB PO Q6H PRN for PAIN-MODERATE Prescribed by: GRACIELA RICHARDS on 06/09/19 1246 Ondansetron (Ondansetron Odt) 4 Mg Tab.rapdis, 4 MG PO Q6H PRN for NAUSEA/VO MITING Prescribed by: YOGESH AVITIA on 04/28/21 1420 Review of Systems Constitutional: No chills, No diaphoresis EENTM: No ear discharge, No ear pain Respiratory: No cough, No short of breath Cardiovascular: No chest pain, No edema Gastrointestinal: No abdominal pain, No constipation, No diarrhea; nausea; No vomiting Genitourinary: No discharge, No dysuria Musculoskeletal: No back pain, No joint pain All Other Systems Reviewed Negative Unless Noted: Yes Past Kejvjyd-Fzjmut-Gjlkep Hx Patient Social History Tobacco Use?: No Use of E-Cig and/or Vaping dev: No Substance use?: No Immunizations Up To Date Tetanus Booster (TDap): Unknown PED Vaccines UTD: Yes Past Medical History Surgeries: Yes (C/S X4) Section, Gallbladder, Tubal Ligation Respiratory: No Cardiac: Yes (MURMUR A CHILD, GESTATIONAL HYPERTENSION) Hypertension Neurological: No Reproductive Disorders: No Female Reproductive Disorders: Ovarian Cyst Sexually Transmitted Disease: No HIV/AIDS: No Gastrointestinal: Yes Gall Bladder Disease Musculoskeletal: No Endocrine: No Loss of Vision: Denies Hearing Impairment: Denies Cancer: No Psychosocial: No Integumentary: No Blood Disorders: No Adverse Reaction/Blood Tranf: No Family Medical History Alzheimer's disease MATERNAL GRANDMOTHER Arthritis 19 MOTHER Diabetes mellitus 19 MOTHER Hypercholesterolemia 19 FATHER 19 MOTHER Hypertension 19 FATHER Myocardial infarction 19 FATHER Severe allergy 19 MOTHER Thyroid disease 19 MOTHER No Family History of: AIDS Abdominal aortic aneurysm Donato's disease Alcoholism Aphasia Asthma Cancer of mouth Cardiovascular disease Cataracts Colon cancer Completed stroke Congenital disease Congenital heart disease Coronary thrombosis Cystic fibrosis Deafness or hearing loss Dementia Drug abuse Dysphasia Fibrocystic disease of breast Gastroenteritis Glaucoma Headache disorder Infertility Kidney disease Neoplasm Not obtainable due to adoption Osteoporosis Parkinson's disease Prostate cancer Psychosocial problem Respiratory disorder Seizure disorder Tuberculosis Visual disorder No Pertinent Family Hx Physical Exam Vital Signs Vital Signs - First Documented 04/28/21 08:16 Temp 36.1 Pulse 118 Resp 20 B/P (MAP) 138/98 (111) Pulse Ox 96 O2 Delivery Room Air Capillary Refill : Height, Weight, BMI Height: 5'6" Weight: 220lbs. oz. 99.676227ce; 36.50 BMI Method:Stated General Appearance: WD/WN, Mild Distress HEENT: PERRL/EOMI (3 mm reactive), TMs Normal (Negative for zhou sign or raccoon eyes), Normal ENT Inspection; No Moist Mucous Membranes Cardiovascular: Regular Rate, Rhythm, No Edema, No Murmur, Tachycardia (115) Respiratory: Lungs Clear, Normal Breath Sounds, No Accessory Muscle Use, No Respiratory Distress Gastrointestinal: Normal Bowel Sounds, No Organomegaly, Non Tender Extremities: Normal Capillary Refill, Normal Inspection, No Pedal Edema Neurologic/Psychiatric: Alert, Oriented x3, No Motor/Sensory Deficits, medical director occupational health II- XII Norm as Tested Cranial Nerves: Normal Hearing, Normal Speech, PERRL Coordination/Gait: Normal Gait Motor/Sensory: No Motor Deficit, No Sensory Deficit Skin: Normal Color, Warm/Dry Procedures/Interventions Discussed Risk,Benefits: Yes Patient Consents: Yes Position: Lying, Right Sterile Technique: Yes Opening Pressure: 23 cmH2O Fluid Color: straw Size of Disposal Tray Used: Adult Patient tolerated procedure well Progress/Results/Core Measures Results/Orders Lab Results Laboratory Tests Test 04/28/21 08:23 04/28/21 08:28 04/28/21 11:55 Range/Units Influenza Type A (RT-PCR) Not Detected Not Detecte Influenza Type B (RT-PCR) Not Detected Not Detecte SARS-CoV-2 RNA (RT-PCR) Not Detected Not Detecte White Blood Count 16.7 H 4.3-11.0 10^3/uL Red Blood Count 4.72 3.80-5.11 10^6/uL Hemoglobin 13.1 11.5-16.0 g/dL Hematocrit 40 35-52 % Mean Corpuscular Volume 85 80-99 fL Mean Corpuscular Hemoglobin 28 25-34 pg Mean Corpuscular Hemoglobin Concent 33 32-36 g/dL Red Cell Distribution Width 13.5 10.0-14.5 % Platelet Count 243 130-400 10^3/uL Mean Platelet Volume 10.1 9.0-12.2 fL Immature Granulocyte % (Auto) 0 % Neutrophils (%) (Auto) 89 H 42-75 % Lymphocytes (%) (Auto) 4 L 12-44 % Monocytes (%) (Auto) 7 0-12 % Eosinophils (%) (Auto) 0 0-10 % Basophils (%) (Auto) 0 0-10 % Neutrophils # (Auto) 14.8 H 1.8-7.8 10^3/uL Lymphocytes # (Auto) 0.6 L 1.0-4.0 10^3/uL Monocytes # (Auto) 1.1 H 0.0-1.0 10^3/uL Eosinophils # (Auto) 0.1 0.0-0.3 10^3/uL Basophils # (Auto) 0.0 0.0-0.1 10^3/uL Immature Granulocyte # (Auto) 0.1 0.0-0.1 10^3/uL Neutrophils % (Manual) 84 % Lymphocytes % (Manual) 6 % Monocytes % (Manual) 4 % Band Neutrophils 6 % Blood Morphology Comment NORMAL Sodium Level 130 L 135-145 MMOL/L Potassium Level 3.5 L 3.6-5.0 MMOL/L Chloride Level 97 L 98-107 MMOL/L Carbon Dioxide Level 22 21-32 MMOL/L Anion Gap 11 5-14 MMOL/L Blood Urea Nitrogen 11 7-18 MG/DL Creatinine 1.20 0.60-1.30 MG/DL Estimat Glomerular Filtration Rate 50 BUN/Creatinine Ratio 9 Glucose Level 121 H 70-105 MG/DL Calcium Level 9.8 8.5-10.1 MG/DL Corrected Calcium 9.9 8.5-10.1 MG/DL Total Bilirubin 2.5 H 0.1-1.0 MG/DL Aspartate Amino Transf (AST/SGOT) 20 5-34 U/L Alanine Aminotransferase (ALT/SGPT) 35 0-55 U/L Alkaline Phosphatase 138 H 40-136 U/L Troponin I < 0.028 <0.028 NG/ML C-Reactive Protein High Sensitivity 32.58 H 0.00-0.50 MG/DL Total Protein 8.3 H 6.4-8.2 GM/DL Albumin 3.9 3.2-4.5 GM/DL Serum Test, Qualitative NEGATIVE NEGATIVE CSF Tube Number 4 CSF Appearance CLEAR CSF Color COLORLESS CSF WBC 2 0-5 CELLS CSF RBC 1 H 0-0 CELLS CSF Lymphocytes % CSF Mononuclear WBCs % CSF Polynuclear WBCs % CSF Glucose 71 50-80 MG/DL CSF Total Protein 25 15-40 MG/DL Micro Results Microbiology 04/28/21 Gram Stain - Final, Resulted 04/28/21 CSF Culture, Resulted Pending My Orders Orders - YOGESH AVITIA Cbc With Automated Diff (04/28/21 08:22) Comprehensive Metabolic Panel (04/28/21 08:22) Hs C Reactive Protein (04/28/21 08:22) Troponin I (04/28/21 08:22) Continuous Ekg Monitoring (04/28/21 08:22) Ekg Tracing (04/28/21 08:22) Orthostatic Vital Signs (Adult (04/28/21 08:22) Covid 19 Inhouse Test (04/28/21 08:22) Influenza A And B By Pcr (04/28/21 08:22) Isolation Central Supply Req (04/28/21 08:22) Hcg,Qualitative Serum (04/28/21 08:22) Ed Iv/Invasive Line Start (04/28/21 08:22) Lactated Ringers (Lr 1000 Ml Iv Solution (04/28/21 08:30) Ketorolac Injection (Toradol Injection) (04/28/21 08:30) Promethazine Injection (Phenergan Injec (04/28/21 08:30) Acetaminophen Tablet (Tylenol Tablet) (04/28/21 08:30) Lactated Ringers (Lr 1000 Ml Iv Solution (04/28/21 08:30) Manual Differential (04/28/21 08:28) Diphenhydramine Injection (Benadryl Inje (04/28/21 09:07) Diphenhydramine Injection (Benadryl Inje (04/28/21 09:17) Diphenhydramine Injection (Benadryl Inje (04/28/21 09:30) Lorazepam Injection (Ativan Injection) (04/28/21 09:30) Diphenhydramine Injection (Benadryl Inje (04/28/21 09:30) Lorazepam Injection (Ativan Injection) (04/28/21 09:21) Benztropine Injection (Cogentin Injectio (04/28/21 09:45) Lorazepam Injection (Ativan Injection) (04/28/21 09:45) Fentanyl Inj (Sublimaze Injection) (04/28/21 10:30) Ct Head Wo (04/28/21 10:17) Benztropine Injection (Cogentin Injectio (04/28/21 11:48) Csf Cell Count (04/28/21 12:14) Csf Glucose (04/28/21 12:14) Csf Total Protein (04/28/21 12:14) Csf Culture (04/28/21 12:14) Cryptococcus Antigen Csf (04/28/21 12:14) Morphine Injection (Morphine Injection (04/28/21 12:20) Medications Given in ED Current Medications Medications Dose Ordered Sig/Angel Route Start Time Stop Time Status Last Admin Dose Admin Acetaminophen 1,000 mg ONCE ONCE PO 04/28/21 08:30 04/28/21 08:31 DC 04/28/21 08:31 1,000 MG Benztropine Mesylate 2 mg ONCE ONCE IV 04/28/21 09:45 04/28/21 09:46 DC 04/28/21 10:01 2 MG Benztropine Mesylate 2 mg STK-MED ONCE .ROUTE 04/28/21 11:48 04/28/21 11:50 DC 04/28/21 12:00 1 MG Diphenhydramine HCl 25 mg ONCE ONCE IVP 04/28/21 09:30 04/28/21 09:31 DC 04/28/21 09:17 25 MG Diphenhydramine HCl 50 mg STK-MED ONCE .ROUTE 04/28/21 09:07 04/28/21 09:11 DC 04/28/21 09:15 25 MG Fentanyl Citrate 50 mcg ONCE ONCE IVP 04/28/21 10:30 04/28/21 10:31 DC 04/28/21 10:23 50 MCG Ketorolac Tromethamine 30 mg ONCE ONCE IVP 04/28/21 08:30 04/28/21 08:31 DC 04/28/21 08:32 30 MG Lactated Ringer's 1,000 ml @ 0 mls/hr Q0M ONCE IV 04/28/21 08:30 04/28/21 08:31 DC 04/28/21 08:31 0 MLS/HR Lactated Ringer's 1,000 ml @ 0 mls/hr Q0M ONCE IV 04/28/21 08:30 04/28/21 08:31 DC 04/28/21 08:32 0 MLS/HR Lorazepam 0.5 mg ONCE ONCE IVP 04/28/21 09:30 04/28/21 09:31 DC 04/28/21 09:23 0.5 MG Lorazepam 1 mg ONCE ONCE IVP 04/28/21 09:45 04/28/21 09:46 DC 04/28/21 09:55 1 MG Promethazine HCl 25 mg ONCE ONCE IVP 04/28/21 08:30 04/28/21 08:31 DC 04/28/21 08:32 25 MG Vital Signs/I&O 04/28/21 04/28/21 08:16 08:25 Temp 36.1 Pulse 118 112 103 155 Resp 20 B/P (MAP) 138/98 (111) 138/98 (111) 123/87 (99) 124/74 (91) Pulse Ox 96 O2 Delivery Room Air Progress Progress Note #1: Time: 08:39 Progress Note Suspect her syncope was related to a vasovagal response from being in a hot shower. We will get a Covid swab influenza swab check some labs, CRP EKG and troponin for syncope work-up as well as give her a couple liters of fluid as she is positive on her orthostatics with a heart rate that shoots up to 150 when she stands up. Progress Note #2: Time: 09:21 Progress Note Patient began having a dystonic reaction feeling like she was unable to stop moving. 50 mg IV Benadryl and half a milligram of Ativan were ordered. She has hyperventilating probably contributing to a little bit of panic attack as well. Initial ECG Impression Date: Apr 28, 2021 Initial ECG Impression Time: 08:30 Initial ECG Rate: 108 Initial ECG Rhythm: S.Tach Initial ECG Intervals: Normal Initial ECG Impression: Normal, Nonspecific Changes Comment Sinus tachycardia without clinically relevant ST elevation or depression. Diagnostic Imaging Diagonstic Imaging: CT Plain Films/CT/US/NM/MRI: head Comments [facility]. [place], [place] NAME: MURIEL TRISTAN [facility] REC#: [id number] PT STATUS: REG ER : 1980 PHYSICIAN: YOGESH AVITIA MD ADMIT DATE: 04/28/21/ER Draft Date of Exam:04/28/21 CT HEAD WO PROCEDURE: CT head without contrast. TECHNIQUE: Multiple contiguous axial images were obtained through the brain without the use of intravenous contrast. Auto Exposure Controls were utilized during the CT exam to meet ALARA standards for radiation dose reduction. INDICATION: Headache. Leukocytosis. Chills. COMPARISON: None. FINDINGS: No intracranial hemorrhage, mass effect, hydrocephalus or extra-axial fluid collections. No CT evidence for territorial infarction. Osseous structures are intact. Visualized paranasal sinuses and mastoids are clear. IMPRESSION: No acute intracranial CT findings. Dictated on workstation # [id number] Dict: 04/28/21 1044 Trans: 04/28/21 1046 SA [id number] Interpreted by: SANDRO TERRELL MD Electronically signed by: Reviewed: Reviewed by Me Departure Impression Primary Impression: Headache Qualified Codes: R51.9 - Headache, unspecified Disposition: 01 HOME, SELF-CARE Condition: Stable Departure-Patient Inst. Decision time for Depature: 14:18 Referrals: NO,LOCAL PHYSICIAN (PCP/Family) Primary Care Physician Patient Instructions: Headache, Adult ED Add. Discharge Instructions: You do not appear to have bacterial meningitis based on the CSF. Get plenty of sleep today. Tylenol 1000 mg every 8 hours as necessary for pain. Ibuprofen 800 mg every 8 hours as necessary for pain. Zofran 1 tablet every 6 hours as necessary for nausea and/or vomiting. Flexeril/cyclobenzaprine 1 tablet every 8 hours as necessary for muscle spasms. Will cause drowsiness. Follow-up with your primary care doctor later this week for reevaluation. Return to the ER promptly if you are having intractable vomiting, fever above 102.5 despite Tylenol and ibuprofen or other worrisome symptoms. Scripts Cyclobenzaprine HCl (Cyclobenzaprine HCl) 10 Mg Tablet 10 MG PO Q8H PRN for SPASMS, #15 TAB 0 Refills Prov: YOGESH AVITIA 04/28/21 Ondansetron (Ondansetron Odt) 4 Mg Tab.rapdis 4 MG PO Q6H PRN for NAUSEA/VOMITING, #8 TAB 0 Refills Prov: YOGESH AVITIA 04/28/21 Work/School Note: Work Release Form Date Seen in the Emergency Department: Apr 28, 2021 Return to Work: May 05, 2021 Restrictions: No Restrictions Other Restrictions Listed Below: May return sooner if feeling better YOGESH AVITIA Apr 28, 2021 08:30
[2021-04-28 08:38] LABS: BASOPHILS % (AUTO) 0 % (0-10); EOSINOPHILS # (AUTO) 0.1 10^3/uL (0.0-0.3); EOSINOPHILS % (AUTO) 0 % (0-10); HEMATOCRIT 40 % (35-52); HEMOGLOBIN 13.1 g/dL (11.5-16.0); LYMPHOCYTES # (AUTO) 0.6 10^3/uL (1.0-4.0); LYMPHOCYTES % (AUTO) 4 % (12-44); MEAN CORPUSCULAR HEMOGLOBIN 28 pg (25-34); MEAN CORPUSCULAR HGB CONC 33 g/dL (32-36); MEAN CORPUSCULAR VOLUME 85 fL (80-99); MEAN PLATELET VOLUME 10.1 fL (9.0-12.2); MONOCYTES # (AUTO) 1.1 10^3/uL (0.0-1.0); MONOCYTES % (AUTO) 7 % (0-12); NEUTROPHILS # (AUTO) 14.8 10^3/uL (1.8-7.8); NEUTROPHILS % (AUTO) 89 % (42-75); PLATELET COUNT 243 10^3/uL (130-400); WHITE BLOOD COUNT 16.7 10^3/uL (4.3-11.0)
[2021-04-28 08:45] LABS: ALBUMIN 3.9 GM/DL (3.2-4.5); CHLORIDE 97 MMOL/L (98-107); POTASSIUM 3.5 MMOL/L (3.6-5.0); SODIUM 130 MMOL/L (135-145)
[2021-04-28 08:46] LABS: CALCIUM 9.8 MG/DL (8.5-10.1)
[2021-04-28 08:48] LABS: GLUCOSE 121 MG/DL (70-105); TOTAL PROTEIN 8.3 GM/DL (6.4-8.2)
[2021-04-28 08:49] LABS: BILIRUBIN,TOTAL 2.5 MG/DL (0.1-1.0); CARBON DIOXIDE 22 MMOL/L (21-32)
[2021-04-28 08:51] LABS: ALKALINE PHOSPHATASE 138 U/L (40-136); GFR ESTIMATED 50
[2021-04-28 08:52] LABS: BUN/CREATININE RATIO 9
[2021-04-28 08:54] LABS: ALANINE AMINOTRANSFERASE 35 U/L (0-55)
[2021-04-28] MEDS ORDERED: diphenhydrAMINE 50 MG/ML INJ (BENADRYL) ONE ×2 (09:07→09:17)
[2021-04-28 09:08] LABS: BAND NEUTROPHILS 6 %; LYMPHOCYTES % (MANUAL) 6 %; MONOCYTES % (MANUAL) 4 %; NEUTROPHILS % (MANUAL) 84 %; RBC MORPH NORMAL
[2021-04-28] MEDS ORDERED: LORazepam INJ 2 MG/ML (ATIVAN) VIAL ONE (09:21)
[2021-04-28] MEDS ORDERED: diphenhydrAMINE 50 MG/ML INJ (BENADRYL) IVP ONE ×2 (09:30)
[2021-04-28] MEDS ORDERED: LORazepam INJ 2 MG/ML (ATIVAN) VIAL IVP ONE ×2 (09:30→09:45)
[2021-04-28] MEDS ORDERED: BENZTROPINE 2 MG/2 ML INJ (COGENTIN) AMP IV ONE (09:45)
[2021-04-28] MEDS ORDERED: fentaNYL INJ 100 MCG/2 ML AMP IVP ONE (10:30)
--- NOTE | 2021-04-28 10:47 | Diagnostic Imaging Report ---
PROCEDURE: CT head without contrast. TECHNIQUE: Multiple contiguous axial images were obtained through the brain without the use of intravenous contrast. Auto Exposure Controls were utilized during the CT exam to meet ALARA standards for radiation dose reduction. INDICATION: Headache. Leukocytosis. Chills. COMPARISON: None. FINDINGS: No intracranial hemorrhage, mass effect, hydrocephalus or extra-axial fluid collections. No CT evidence for territorial infarction. Osseous structures are intact. Visualized paranasal sinuses and mastoids are clear. IMPRESSION: No acute intracranial CT findings. Dictated by: Dictated on workstation # [id number]
[2021-04-28] MEDS ORDERED: BENZTROPINE 2 MG/2 ML INJ (COGENTIN) AMP ONE (11:48)
[2021-04-28] MEDS ORDERED: morphine INJ 10 MG/ML 1ML (SYR OR VIAL) IVP STA (12:20)
[2021-04-28 12:28] LABS: CSF GLUCOSE 71 MG/DL (50-80)
[2021-04-28 12:34] LABS: CSF TOTAL PROTEIN 25 MG/DL (15-40)
[2021-04-28 12:43] LABS: APPEARANCE,CSF CLEAR; COLOR,CSF COLORLESS; RED BLOOD CELL,CSF 1 CELLS (0-0); WHITE BLOOD CELL,CSF 2 CELLS (0-5)
[2021-04-28 12:44] LABS: CSF TUBE NUMBER 4
[2021-04-28] MEDS ORDERED: ONDA4TAB11 PO (14:20)
[2021-04-28] MEDS ORDERED: CYCL10TA9 PO (14:20)
[2021-04-28 14:49] VITALS: BP 131/74
== END 2021-04-28 14:49 | disposition home or self-care (01) ==
LOC: EDUNIT# 08:09 → ER 08:11
DX: R51.9 Headache, unspecified (principal); I10 Essential (primary) hypertension; Z20.822 Contact with and (suspected) exposure to COVID-19
CPT/HCPCS: 36415; 70450; 80053; 82945; 84157; 84484; 84703; 85007; 85027; 86141; 87070; 87205; 87636; 89051; 93005

== ENCOUNTER → 2021-12-08 | Outpatient (CLI) | payer BC, MEDICAID ==
[~2021-12-08] MED LIST changes: +CYCL10TA25 PO
[2021-12-08 14:16] LABS: BASOPHILS % (AUTO) 0 % (0-10); EOSINOPHILS % (AUTO) 0 % (0-10); HEMATOCRIT 39 % (35-52); HEMOGLOBIN 12.8 g/dL (11.5-16.0); LYMPHOCYTES % (AUTO) 22 % (12-44); MEAN CORPUSCULAR HEMOGLOBIN 28 pg (25-34); MEAN CORPUSCULAR HGB CONC 33 g/dL (32-36); MEAN CORPUSCULAR VOLUME 86 fL (80-99); MEAN PLATELET VOLUME 10.8 fL (9.0-12.2); MONOCYTES # (AUTO) 0.6 10^3/uL (0.0-1.0); MONOCYTES % (AUTO) 6 % (0-12); NEUTROPHILS # (AUTO) 6.4 10^3/uL (1.8-7.8); NEUTROPHILS % (AUTO) 71 % (42-75); PLATELET COUNT 318 10^3/uL (130-400)
[2021-12-08 14:27] LABS: ALBUMIN 4.4 GM/DL (3.2-4.5); BILIRUBIN,TOTAL 0.7 MG/DL (0.1-1.0); CALCIUM 9.3 MG/DL (8.5-10.1); CREATININE SERUM 1.01 MG/DL (0.60-1.30); POTASSIUM 3.7 MMOL/L (3.6-5.0); TOTAL PROTEIN 7.8 GM/DL (6.4-8.2)
== END ==
LOC: LABNPT 14:07
PROVIDERS: ATTEND Obstetrics & Gynecology
DX: O00.90 Unspecified ectopic pregnancy without intrauterine pregnancy (principal)
CPT/HCPCS: 80053; 85025

== ENCOUNTER → 2021-12-08 | Outpatient (CLI) | payer BC, MEDICAID ==
[~2021-12-08] VITALS: Ht 162.6 cm; Wt 108.0 kg
[~2021-12-08] MED LIST changes: +METHOTREXATE 50 MG/2 ML PF IM NR
[2021-12-08 12:23] VITALS: BP_SYST 0; BP_SYST 141; BP_DIAS 0; BP_DIAS 95
== END ==
LOC: SDC 12:08
PROVIDERS: ATTEND Obstetrics & Gynecology
DX: O00.90 Unspecified ectopic pregnancy without intrauterine pregnancy (principal); Z3A.00 Weeks of gestation of pregnancy not specified
CPT/HCPCS: 96372

== ENCOUNTER 2022-06-04 05:39 | Outpatient (CLI) | payer BC, MEDICAID ==
[~2022-06-04] VITALS: Ht 162.5 cm; Wt 108.6 kg
[~2022-06-04 05:39] MED LIST changes: -METHOTREXATE 50 MG/2 ML PF IM NR
[2022-06-04] MEDS ORDERED: NORG1TAB14 PO (12:52)
[2022-06-04] MEDS ORDERED: RT-ALBUINH IH (12:52)
[2022-06-10] MEDS ORDERED: OXYC-199 PO (13:16)
[2022-06-10] MEDS ORDERED: DOCU-143 PO (13:16)
[2022-06-10] MEDS ORDERED: IBUP-1780 PO (13:16)
== END 2022-06-04 13:00 | disposition home or self-care (01) ==
LOC: PREOP 05:39
PROVIDERS: ATTEND Obstetrics & Gynecology
DX: Z01.818 Encounter for other preprocedural examination (principal)

== ENCOUNTER 2022-06-10 11:25 | Day surgery (SDC) | payer BC, MEDICAID ==
[~2022-06-10] VITALS: Ht 162.5 cm; Wt 108.6 kg
[2022-06-10] VITALS (12 sets, daily range): BP systolic 118–138; BP diastolic 68–97
[~2022-06-10 11:25] MED LIST changes: +ALBU8.5H6 IH; +NORG1TAB14 PO
[2022-06-10] MEDS ORDERED: ceFAZolin INJECTION 1,000 MG in NS (IVPB) 50 ML IV ONE (11:45)
[2022-06-10 12:48] LABS: BASOPHILS % (AUTO) 0 % (0-10); EOSINOPHILS # (AUTO) 0.1 10^3/uL (0.0-0.3); EOSINOPHILS % (AUTO) 1 % (0-10); HEMATOCRIT 35 % (35-52); HEMOGLOBIN 11.9 g/dL (11.5-16.0); LYMPHOCYTES # (AUTO) 1.7 10^3/uL (1.0-4.0); LYMPHOCYTES % (AUTO) 24 % (12-44); MEAN CORPUSCULAR HEMOGLOBIN 29 pg (25-34); MEAN CORPUSCULAR HGB CONC 34 g/dL (32-36); MEAN CORPUSCULAR VOLUME 84 fL (80-99); MEAN PLATELET VOLUME 10.1 fL (9.0-12.2); MONOCYTES # (AUTO) 0.4 10^3/uL (0.0-1.0); MONOCYTES % (AUTO) 6 % (0-12); NEUTROPHILS # (AUTO) 5.1 10^3/uL (1.8-7.8); NEUTROPHILS % (AUTO) 69 % (42-75); PLATELET COUNT 293 10^3/uL (130-400); WHITE BLOOD COUNT 7.4 10^3/uL (4.3-11.0)
[2022-06-10] MEDS: LACTATED RINGERS 1,000 ML IV PRN ×4 (12:50→20:51)
--- NOTE | 2022-06-10 13:11 | Progress Note-Pre Operative ---
Pre-Operative Progress Note Date of Available H&P: Jun 10, 2022 Date H&P Reviewed: Jun 10, 2022 Time H&P Reviewed: 16:30 History & Physical: H&P Reviewed, No changes noted Pre-Operative Diagnosis: Menometrorrhagia/Utero megaly/Complex right adnexal mass NEO DIOP MD Jun 10, 2022 13:11
--- NOTE | 2022-06-10 13:12 | Progress Note-Post Operative ---
Post-Operative Progess Note Surgeon (s)/Game Programer (s) Surgeon NEO DIOP MD Game Programer: Kristina Ribera Pre-Operative Diagnosis Menometrorrhagia/uterine mass/complex right ovarian mass Post-Operative Diagnosis Same with extensive abdominal pelvic adhesions, extensive uteropelvic adhesions, incidental cystotomy and repair and with pathology pending Procedure & Operative Findings Date of Procedure 06/10/22 Procedure Performed/Findings Total laparoscopic hysterectomy with bilateral salpingectomies and with right oophorectomy as well as extensive adhesiolysis and with incidental cystotomy and repair and with cystoscopy Anesthesia Type General Estimated Blood Loss Estimated blood loss (mL): Minimal Specimens/Packing Specimens Removed Uterus and fallopian tubes and right ovary NEO DIOP MD Jun 10, 2022 13:11
[2022-06-10] MEDS ORDERED: ROCURONIUM 10 MG/ML 5 ML SYRINGE IV ONE ×2 (13:13→19:12)
[2022-06-10] MEDS ORDERED: proPOfol 200 MG/20 ML (DIPRIVAN) VIAL IV ONE (13:13)
[2022-06-10] MEDS ORDERED: fentaNYL INJ 100 MCG/2 ML AMP ONE ×2 (13:13→16:20)
[2022-06-10] MEDS ORDERED: SEVOFLURANE (ULTANE) 15 ML INHAL SOLN ONE ×3 (13:13→19:33)
[2022-06-10] MEDS ORDERED: LIDOCAINE PF 2% 5 ML (XYLOCAINE) VIAL ONE (13:13)
[2022-06-10] MEDS ORDERED: ONDANSETRON 4 MG/2 ML (SDV) Z0FRAN ONE ×2 (13:13→19:31)
[2022-06-10] MEDS ORDERED: MIDAZOLAM 2 MG/2 ML (VERSED) VIAL ONE (13:14)
[2022-06-10] MEDS ORDERED: ESTROGENS CONJ INJECTION 25 MG in WATER (STERILE) FOR INJECTION 5 ML IV ONE (13:15)
[2022-06-10] MEDS ORDERED: ONDANSETRON 4 MG/2 ML (SDV) Z0FRAN IVP PRN ×2 (13:15→20:30)
[2022-06-10] MEDS ORDERED: D5 LR IV SOLUTION 1,000 ML IV SCH (13:15)
[2022-06-10] MEDS ORDERED: oxyCODONE/APAP 5/325MG (PERCOCET 5) TABLET PO PRN (13:15)
[2022-06-10] MEDS ORDERED: PROMETHAZINE INJ 25 MG/ML (PHENERGAN) AMP IM PRN (13:15)
[2022-06-10] MEDS ORDERED: OXYC-199 PO (13:16)
[2022-06-10] MEDS ORDERED: IBUP-1780 PO (13:16)
[2022-06-10] MEDS ORDERED: DOCU-143 PO (13:16)
--- NOTE | 2022-06-10 13:17 | Discharge Inst-Surgical ---
Discharge Inst-Surgical Depart Medication/Instructions New, Converted or Re-Newed RX: Transmitted to Pharmacy Consults/Follow Up Patient Instructions: As directed Orders & Referrals Follow Up Appt: Return to clinic in 1 week for suture removal Call to make follow up appt. for patient in 4 weeks. Activity: Rest for 24 hours, than as tolerated. Wound Care: May remove Band-Aid tomorrow. Replace as desired. Keep incisions clean and dry. Wash daily with soap and water. Prescription for Percocet Motrin and Colace have been transmitted electronically to this patient's pharmacy Diet: As tolerated- shower or tub bathe as desired. No driving for 24 hours, no alcoholic beverages for 24 hours, and nothing per vagina (no tampons, douching, or intercourse) for 8 weeks. Patient to return to the clinic as soon as possible for: Temperature greater than 101F, Severe Pain, Foul discharge from incision or vagina, Excessive Bleeding (more than a period). Activity Activity as Tolerated: No Diet Discharge Diet: No Restrictions NEO DIOP MD Jun 10, 2022 13:17
[2022-06-10] MEDS ORDERED: BUP/EPI 0.5% 1:200,000 (MARCAINE) 10ML VIAL IJ ONE ×2 (13:29→18:49)
[2022-06-10] MEDS ORDERED: fentaNYL INJ 100 MCG/2 ML AMP IVP ONE ×2 (16:20→20:30)
[2022-06-10] MEDS ORDERED: KETOROLAC 30 MG/ML VIAL ONE (17:50)
[2022-06-10] MEDS ORDERED: WATER (STERILE) FOR INJECTION 10 ML ONE (18:06)
[2022-06-10] MEDS ORDERED: ESTROGENS CONJ INJECTION 5 ML ONE (18:06)
[2022-06-10] MEDS ORDERED: METHYLENE BLUE 0.5% (PROVAYBLUE) 50 mg/10 ml vial IV ONE ×2 (18:41→18:45)
[2022-06-10] MEDS ORDERED: GLYCOPYRROLATE 0.2 MG/ML (ROBINUL) 2 ML VIAL ONE (19:49)
[2022-06-10] MEDS ORDERED: NEOSTIGMINE (BLOXIVERZ ) 1 MG/1ML 10 ML VIAL ONE (19:49)
[2022-06-10] MEDS ORDERED: morphine INJ 10 MG/ML 1ML (SYR OR VIAL) ONE (20:19)
[2022-06-10] MEDS ORDERED: MEPERIDINE (DEMEROL) INJ 50 MG/ML IVP ONE (20:30)
[2022-06-10] MEDS ORDERED: morphine INJ 10 MG/ML 1ML (SYR OR VIAL) IVP ONE (20:30)
[2022-06-10] MEDS ORDERED: HYDROmorphone 2 MG/ML VIAL (DILAUDID) IV ONE (20:30)
[2022-06-10] MEDS: KETOROLAC 30 MG/ML VIAL IV SCH (20:34)
[2022-06-10] MEDS ORDERED: MEPERIDINE (DEMEROL) INJ 100 MG/ML ONE (22:43)
[2022-06-10] MEDS: MEPERIDINE (DEMEROL) INJ 50 MG/ML IVP PRN (22:47)
[2022-06-11] MEDS ORDERED: D5 LR IV SOLUTION 1,000 ML IV ONE (01:41)
[2022-06-11] MEDS ORDERED: KETOROLAC 30 MG/ML VIAL ONE (01:44)
[2022-06-11] MEDS: KETOROLAC 30 MG/ML VIAL IV SCH ×2 (01:47→07:17)
[2022-06-11 04:21] VITALS: BP 131/82
[2022-06-11] MEDS ORDERED: MEPERIDINE (DEMEROL) INJ 100 MG/ML ONE (04:30)
[2022-06-11] MEDS: MEPERIDINE (DEMEROL) INJ 50 MG/ML IVP PRN (04:34)
[2022-06-11] MEDS ORDERED: NITROFURANTOIN 100 MG (MACROBID) CAPSULE PO ONE (08:00)
--- NOTE | 2022-06-11 08:08 | Progress Note ---
Standard Progress Note Progress Notes/Assess & Plan Date Seen by a Provider: Jun 11, 2022 Time Seen by a Provider: 08:05 Progress/Assessment & Plan This patient is without complaint. She is ambulating, tolerating oral intake and has good pain control. Her Dudley catheter had revealed to the patient findings due to incidental cystotomy concurrent with her hysterectomy. We had a lengthy discussion regarding surgical findings including the extensive adhesions of the omentum to the abdominal wall and of the uterus to the anterior abdominal wall into the bladder. He understands that result was not an intentional opening of the bladder. The bladder was immediately recognized and repaired after completing the dissection of the bladder off of the uterus.. The repair was watertight and cystotomy at the end of the procedure confirmed the bladder integrity and the function of the ureters bilaterally. Patient understands that she will need to maintain the catheter to a leg bag for the next week and then we will have radiology perform a retrograde cystogram to assess for leaks. If the bladder demonstrates adequate healing then that the Dudley catheter can be removed. All of patient's questions regarding the surgery were answered. Vital Signs Date Time Temp Pulse Resp B/P (MAP) Pulse Ox O2 Delivery O2 Flow Rate FiO2 06/11/22 04:21 37.3 89 16 131/82 (98) 98 Nasal Cannula 1.00 06/10/22 22:50 36.2 74 18 129/74 (92) 99 Nasal Cannula 1.00 06/10/22 21:42 75 16 119/68 (85) 100 Room Air 06/10/22 21:27 67 18 118/69 (85) 100 Room Air 06/10/22 21:10 36.1 77 16 125/69 (87) 100 Room Air 06/10/22 21:10 Room Air 06/10/22 21:04 17 124/75 (91) 97 Room Air 06/10/22 21:00 36.1 16 125/79 (94) 99 Room Air 06/10/22 20:55 Room Air 06/10/22 20:50 17 125/80 (95) 100 OxyMask 10.00 06/10/22 20:40 20 138/97 (111) 100 OxyMask 10.00 06/10/22 20:40 OxyMask 10.00 06/10/22 20:30 16 129/82 (98) 100 OxyMask 10.00 06/10/22 20:25 OxyMask 10.00 06/10/22 20:20 16 126/83 (97) 100 OxyMask 10.00 06/10/22 20:09 36.4 19 124/84 (97) 100 OxyMask 10.00 06/10/22 20:09 OxyMask 10.00 06/10/22 11:30 36.7 88 20 126/89 (101) 97 Room Air I & O 06/11/22 07:00 Intake Total 3050 ml Output Total 800 ml Balance 2250 ml Vital signs are stable. Patient is afebrile. Abdomen is benign. Extremities show no clubbing or cyanosis. There is no Homans' sign. Pelvic exam is deferred Assessment and plan Postoperative day #1 status post total laparoscopic hysterectomy with right salpingo-oophorectomy left salpingectomy. Extensive adhesiolysis incidental cystotomy and repair and cystoscopy. Patient is doing well and will be discharged home with follow-up in clinic. We will prescribe Macrobid 100 mg daily for urinary tract infection prophylaxis Final Diagnosis Menometrorrhagia/pelvic mass/pelvic pain NEO DIOP MD Jun 11, 2022 08:08
[2022-06-11] MEDS ORDERED: NITR-65 PO (08:15)
[2022-06-11 08:20] VITALS: BP 135/76
[2022-06-11] MEDS ORDERED: DOCUSATE SODIUM 100 MG (COLACE) CAP PO SCH (09:00)
[2022-06-11 10:30] VITALS: BP 135/76
[2022-06-11] MEDS ORDERED: IBUPROFEN 800 MG (MOTRIN) TAB PO SCH (13:15)
--- NOTE | 2022-06-11 13:37 | Anesthesia-General Post-Op ---
General Patient Condition Mental Status/LOC: Same as Preop Cardiovascular: Satisfactory Nausea/Vomiting: Absent Respiratory: Satisfactory Pain: Controlled Complications: Absent Post Op Complications Complications None Follow Up Care/Instructions Patient Instructions None needed. Anesthesia/Patient Condition Patient Condition Patient is doing well, no complaints, stable vital signs, no apparent adverse anesthesia problems. No complications reported per nursing. PORTILLO STONER CRNA Jun 11, 2022 13:37
--- NOTE | 2022-06-11 13:37 | OPERATIVE REPORT ---
DATE OF SERVICE: 06/10/2022 PREOPERATIVE DIAGNOSES: Menorrhagia, uterine mass and right complex adnexal mass. POSTOPERATIVE DIAGNOSES: Menorrhagia, uterine mass and right complex adnexal mass with pathology pending as well as with extensive abdominopelvic adhesions, extensive uteropelvic adhesions. OPERATIVE PROCEDURE: Total laparoscopic hysterectomy with right salpingo-oophorectomy, left salpingectomy, extensive adhesiolysis, incidental cystotomy / repair and cystoscopy. OPERATIVE DESCRIPTION: With the patient in the supine position under satisfactory general anesthesia, she was repositioned in dorsal lithotomy position in the [facility] and then prepped and draped in the usual fashion for abdominal and vaginal surgery. Weighted speculum placed in posterior fornix of vagina, cervix exposed and grasped anteriorly with single tooth tenaculum. Uterus was sounded to 9.5 cm with uterine sound. The cervix was then inserted dilated with Ed dilators to accommodate a Sumi II manipulator, which was placed using a 6 mm x 8 cm uterine probe and a 25 mm colpotomy ring. Sutures of #1 Vicryl placed at 3 and 9 o'clock position of the cervix to affix the uterus to the manipulator. Dudley catheter was placed in the urinary bladder. Speculum and tenaculum were removed. The patient was brought in low dorsal lithotomy position. A 5 mm incision was made 10 cm superior to the umbilicus. Veress needle was placed through that incision into the abdominal cavity. Correct placement confirmed with water drop test. The abdomen was insufflated with 2.4 liters of carbon dioxide. The Veress needle was removed and a 12 mm Optiview laparoscopic port placed. Laparoscope was introduced and it was immediately apparent that the entire pelvis was obscured by omental adhesions to the abdominal wall. There was a clear area on the right where an 8 mm port was placed 8 cm lateral to the umbilicus and in the right upper quadrant, a 5 mm port was placedIn the right upper quadrant as well. Extensive adhesiolysis was undertaken using a [place] hook with cautery to lyse the adhesions of the omentum to the anterior abdominal wall. These adhesions were for the most part light and filmy, but some places were very thick and fibrotic and dense. Eventually, the adhesions were taken down to the point where a left lateral 8 mm port could be placed for the da Carlo equipment as well. At this point, the da Carlo column was advanced on the patient and docked after the patient was placed in steep Trendelenburg. With the operative instruments in the right and left lateral ports, the adhesiolysis Involve taking down the omentum from the anterior abdominal wall and down on to the dome of the uterus down into the left lower quadrant as well. Eventually, all of the omental adhesions were freed and the omentum spilled out of the pelvis. The uterus was densely adherent to the anterior abdominal wall with no space between the uterus and the anterior abdominal wall. The bladder was obscured by these adhesions as well. The right tube and ovary were involved with a complex cystic mass and were densely adherent to the pelvic brim into the right lateral pelvic wall as well. Extensive adhesiolysis was undertaken, carefully and meticulously to free the fallopian tube and the ovary on the right side of the uterus. That dissection was carried down to the cervix where the bladder could be seen and dissected off of the cervix. The adhesions on the left extended well above the apex of the uterus. Dissection was initiated on that side and about at the level of the top of the uterus, an incidental cystotomy occurred. Using that cystotomy opening to allow placing an instrument in the bladder, it could be determined where the extent of the bladder was against the uterus. There was complete distortion of the anatomy in that area. There was no discrimination between the uterus and the bladder. Using a probe to isolate the bladder, the bladder was carefully and eventually meticulously dissected completely free of the uterus. No further obvious defects were noted in the bladder. With the uterus completely free of the anterior abdominal wall and the bladder free of the uterus, the incidental cystotomy was repaired using a 2-0 Vicryl suture in a running fashion to invert the bladder mucosa into the bladder. Bladder was then filled with 150 mL of saline with methylene blue. There was no leakage. The repair was watertight. The bladder was then drained and the repair reimbricated also with a running suture of 2-0 Vicryl. With the bladder defect dealt with and the uterus free, the hysterectomy was continued by using the vessel sealer, grasping and elevating the right tube and ovary. The right IP ligament was clamped, cauterized and divided. Dissection was continued across the mesovarium across to broad ligament, across the round ligament and down onto the cardinal ligament. Same procedure was performed on the left, although the left ovary was conserved. The left fallopian tube was dissected free from the ovary. Dissection was carried across the mesosalpinx and across the uteroovarian pedicle was then advanced across the round ligament, the broad ligament down onto the cardinal ligament. With that done, there was no peritoneum on the anterior surface of the uterus. The bladder was free of the lower uterine segment. Vaginotomy incision was started at 12 o'clock position onto the colpotomy ring. The incision was continued circumferentially until the entire colpotomy ring was exposed. The uterus was then gently extracted through the bladder with the right fallopian tube and ovary and the left fallopian tube still attached. The vaginal cuff was now closed with a single suture V-Loc barbed suture starting from the right angle and continuing across the left angle taking care to ensure inclusion of the uterine vessel pedicles bilaterally. The bladder remained intact. There was no significant bleeding. There was no remaining abnormal pathology inside. No effort was made to visualize the appendix. With the laparoscopic portion of the procedure complete, the operative instruments were removed as were the ports. The abdomen was evacuated the insufflating gas in the process of removing the ports. The skin incisions were closed with nylon sutures. The fascia at the supraumbilical incision was closed with [id number] suture of 2-0 Vicryl. The patient was then brought into low dorsal lithotomy position. Cystoscopy was performed using sterile water as a distending medium. The bladder wall was intact at this point, there was the obvious repair in the left bladder dome. Both ureter orifices were seen and were effluxing urine freely. With no obvious unrepaired insult remaining to the bladder, the procedure was complete and terminated. Sponge and needle counts were correct on completion of the procedure. Blood loss was minimal. The patient tolerated the procedure well and was transferred to recovery room in stable condition. Plan was for leaving the Dudley catheter for a week and then obtained a retrograde cystogram to evaluate for leakage before removing the Dudley catheter. Should she have bladder problems or leakage, then we will consult urology for assistance in management. Job ID: [id number] DocumentID: [id number] Dictated Date: 06/11/2022 08:39:22 Toilet Attendant Date: 06/11/2022 13:36:44 Dictated By: NEO DIOP MD [facility]
== END 2022-06-11 10:30 | disposition home or self-care (01) ==
LOC: SDC 11:25 → WS 21:10 → SDC 06-11 10:30
PROVIDERS: ATTEND Obstetrics & Gynecology
DX: D25.0 Submucous leiomyoma of uterus (principal); N85.8 Other specified noninflammatory disorders of uterus; N73.6 Female pelvic peritoneal adhesions (postinfective); N83.8 Other noninflammatory disorders of ovary, fallopian tube and broad ligament; N83.01 Follicular cyst of right ovary; Z98.51 Tubal ligation status; E66.01 Morbid (severe) obesity due to excess calories; Z68.41 Body mass index [BMI] 40.0-44.9, adult
CPT/HCPCS: 36415; 84703; 85025; 87081

== ENCOUNTER 2022-06-13 01:52 | Emergency (ER) | payer BC, MEDICAID ==
[~2022-06-13] VITALS: Ht 163 cm; Wt 107.0 kg
[~2022-06-13 01:52] MED LIST changes: +DOCU-143 PO; +NITR-65 PO; +OXYC-199 PO
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
[2022-06-13 04:01] VITALS: BP 134/97
--- NOTE | 2022-06-13 05:57 | Diagnostic Imaging Report ---
PROCEDURE: CT head and maxillofacial without contrast. TECHNIQUE: Multiple contiguous axial images were obtained through the head and facial bones without the use of intravenous contrast. Auto Exposure Controls were utilized during the CT exam to meet ALARA standards for radiation dose reduction. INDICATION: Head and facial injury with pain. COMPARISON: Head CT 04/28/2021. DISCUSSION: No acute intracranial hemorrhage, mass, midline shift, hydrocephalus. The ventricles and sulci are normal size and configuration for age. The orbits and mastoid air cells are well-aerated. The orbits appear symmetrical. Mild rightward nasal septal deviation. Temporomandibular joints are maintained. No facial fracture identified. Mild soft tissue induration along the left cheek. There is no associated fracture identified.. IMPRESSION: 1. Negative head CT. 2. Left cheek soft tissue swelling. No fracture. Dictated by: Dictated on workstation # [id number]
== END 2022-06-13 04:05 | disposition home or self-care (01) ==
LOC: EDUNIT# 01:52 → ER 01:53
DX: S00.83XA Contusion of other part of head, initial encounter (principal); S10.93XA Contusion of unspecified part of neck, initial encounter; T71.9XXA Asphyxiation due to unspecified cause, initial encounter; Y04.8XXA Assault by other bodily force, initial encounter; Y07.03 Male partner, perpetrator of maltreatment and neglect
CPT/HCPCS: 70450; 70486

== ENCOUNTER → 2022-06-17 | Outpatient (CLI) | payer BC, MEDICAID ==
[~2022-06-17] MED LIST changes: +DIATRIZOATE 30% 300 ML (CYSTOGRAFIN) VIAL UR ONE
--- NOTE | 2022-06-17 14:11 | Diagnostic Imaging Report ---
Indication: Bladder injury. Study is performed for further evaluation. Approximately 225 mL of Cystografin contrast was infused into the urinary bladder through the indwelling Dudley catheter using gravity. Spot films over the pelvis were then obtained in multiple obliquities. 58 seconds of fluoroscopic time was utilized. The bladder has a normal appearance. No extravasation of contrast is identified. No bladder injury is seen. IMPRESSION: Unremarkable cystogram. Dictated by: Dictated on workstation # [id number]
== END ==
LOC: RAD 11:04
PROVIDERS: ATTEND Obstetrics & Gynecology
DX: N32.89 Other specified disorders of bladder (principal)
CPT/HCPCS: 74450